=== PATIENT | female | born 1975 | race Caucasian/White ===

== ENCOUNTER 2017-08-04 08:05 | Inpatient (IN) | payer OTHER ==
[~2017-08-04 08:05] MED LIST: Dexamethasone 4 MG/ML SDV ONE; Lactated Ringers 1,000 ML IV SCH; Lactated Ringers 1,000 ML ONE; Lidocaine 1% 4 ML ONE; Lidocaine 1%/Sod Bicarbonate in NS 8.4% 1 ML Syringe PRN; Midazolam 1 MG/ML 2 ML SDV ONE; Ondansetron 4 MG/2 ML SDV ONE; Phenylephrine 1% 10 MG/ML SDV ONE; Propofol 200 MG/20 ML SDV ONE; Rocuronium 50 MG/5 ML Vial ONE; Sodium Chloride 0.9% 10 ML Syringe FLUSH PRN; ceFAZolin 1 GM Vial ONE; fentaNYL 250 MCG/5 ML SDV ONE
[2017-08-04] MEDS ORDERED: Bupivacaine 0.5% 30 ML SDV ONE (08:52)
[2017-08-04] MEDS ORDERED: Sodium Chloride 0.9% 50 ML SDV ONE (08:52)
[2017-08-04] MEDS ORDERED: Lidocaine 1% with EPINEPHrine 1:100,000 20 ML MDV ONE (08:52)
--- NOTE | 2017-08-04 09:22 | PCM.PREANE ---
Preanesthetic Assessment - Anesthesia/Transfusion/Family Hx Anesthesia History: Prior Anesthesia Reaction Type of Anesthesia Reaction: Excessive Nausea/Vomiting Family History of Anesthesia Reaction: No Transfusion History: No Prior Transfusion(s) Intubation History: Unknown - Review of Systems General: No Symptoms Pulmonary: No Symptoms Cardiovascular: No Symptoms Gastrointestinal: No Symptoms Neurological: Headache Other: Reports: None - Physical Assessment NPO Status Date: 08/03/17 NPO Status Time: 19:30 O2 Sat by Pulse Oximetry: 97 Respiratory Rate: 16 Vital Signs: Last Vital Signs Temp 36.4 C 08/04/17 08:10 Pulse 71 08/04/17 08:10 Resp 16 08/04/17 08:10 BP 144/87 H 08/04/17 08:10 Pulse Ox 97 08/04/17 08:10 Height: 1.65 m Weight: 123.377 kg ASA Class: 2 Mental Status: Alert & Oriented x3 Airway Class: Mallampati = 2 Dentition: Reports: Normal Dentition Thyro-Mental Finger Breadths: 2 Mouth Opening Finger Breadths: 3 ROM/Head Extension: Full Lungs: Clear to Auscultation, Normal Respiratory Effort Cardiovascular: Regular Rate, Regular Rhythm - Lab Values: Laboratory Last Values WBC 7.37 K/mm3 (3.98-10.04) 08/04/17 08:30 RBC 4.06 M/mm3 (3.98-5.22) 08/04/17 08:30 Hgb 12.4 gm/L (11.2-15.7) 08/04/17 08:30 Hct 36.8 % (34.1-44.9) 08/04/17 08:30 MCV 90.6 fl (79.4-94.8) 08/04/17 08:30 MCH 30.5 pg (25.6-32.2) 08/04/17 08:30 MCHC 33.7 g/dl (32.2-35.5) 08/04/17 08:30 RDW Std Deviation 43.0 fL (36.4-46.3) 08/04/17 08:30 Plt Count 281 K/mm3 (182-369) 08/04/17 08:30 MPV 8.7 fl (9.4-12.3) L 08/04/17 08:30 Neut % (Auto) 63.9 % (34.0-71.1) 08/04/17 08:30 Lymph % (Auto) 27.4 % (19.3-51.7) 08/04/17 08:30 [place] % (Auto) 4.9 % (4.7-12.5) 08/04/17 08:30 Eos % (Auto) 3.0 (0.7-5.8) 08/04/17 08:30 Baso % (Auto) 0.5 % (0.1-1.2) 08/04/17 08:30 Neut # (Auto) 4.71 K/mm3 (1.56-6.13) 08/04/17 08:30 Lymph # (Auto) 2.02 K/mm3 (1.18-3.74) 08/04/17 08:30 [place] # (Auto) 0.36 K/mm3 (0.24-0.36) 08/04/17 08:30 Eos # (Auto) 0.22 K/mm3 (0.04-0.36) 08/04/17 08:30 Baso # (Auto) 0.04 K/mm3 (0.01-0.08) 08/04/17 08:30 - Allergies Allergies/Adverse Reactions: Allergies Allergy/AdvReac Type Severity Reaction Status Date / Time No Known Allergies Allergy Verified 08/03/17 14:04 - Acknowledgements Anesthesia Type Planned: General Anesthesia Pt an Appropriate Candidate for the Planned Anesthesia: Yes Alternatives and Risks of Anesthesia Discussed w Pt/Guardian: Yes Pt/Guardian Understands and Agrees with Anesthesia Plan: Yes PreAnesthesia Questionnaire Cardiovascular History: Reports: Hypertension Respiratory History: Reports: None Gastrointestinal History: Reports: None Genitourinary History: Reports: None 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: , 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 (See Below) Other OB/BYN History: menorrhagia, uterine leiomyoma Musculoskeletal History: Reports: None Neurological History: Reports: None Psychiatric History: Reports: None Endocrine/Metabolic History: Reports: Hypothyroidism Hematologic History: Reports: None Immunologic History: Reports: None Oncologic (Cancer) History: Reports: None Dermatologic History: Reports: None - Past Surgical History Head Surgeries/Procedures: Reports: None HEENT Surgical History: Reports: Tonsillectomy Cardiovascular Surgical History: Reports: None Respiratory Surgical History: Reports: None GI Surgical History: Reports: Cholecystectomy Female Surgical History: Reports: Section, Tubal Ligation Male Surgical History: Reports: None Endocrine Surgical History: Reports: None Neurological Surgical History: Reports: None Musculoskeletal Surgical History: Reports: None Oncologic Surgical History: Reports: None Dermatological Surgical History: Reports: None - SUBSTANCE USE Smoking Status *Q: Current Every Day Smoker Recreational Drug Use History: No - HOME MEDS Home Medications: Home Meds Hydrochlorothiazide [Hydrochlorothiazide] 12.5 mg PO DAILY 08/03/17 [History] Levothyroxine 112 mcg PO DAILY 08/03/17 [History] Lisinopril [Lisinopril] 40 mg PO DAILY 08/03/17 [History] - CURRENT (IN HOUSE) MEDS Current Meds: Current Medications Lactated Ringer's (Ringers, Lactated) 1,000 mls @ 125 mls/hr IV ASDIRECTED EARNESTINE Stop: 08/04/17 23:00 Last Admin: 08/04/17 08:30 Dose: 125 mls/hr Lidocaine/Sodium Bicarbonate (Buffered Lidocaine 1% In Ns 8.4%) 0.25 ml .XX ONETIME PRN PRN Reason: Prior to IV Start Stop: 08/04/17 18:00 Last Admin: 08/04/17 08:29 Dose: 0.25 ml Sodium Chloride (Saline Flush) 10 ml FLUSH ASDIRECTED PRN PRN Reason: Keep Vein Open Stop: 08/04/17 18:00 Discontinued Medications Bupivacaine HCl (Marcaine 0.5%) Confirm Administered Dose 30 ml .ROUTE .STK-MED ONE Stop: 08/04/17 08:53 Cefazolin Sodium (Ancef) Confirm Administered Dose 2 gm .ROUTE .STK-MED ONE Stop: 08/04/17 07:17 Dexamethasone (Dexamethasone) Confirm Administered Dose 8 mg .ROUTE .STK-MED ONE Stop: 08/04/17 07:17 Fentanyl (Sublimaze) Confirm Administered Dose 250 mcg .ROUTE .STK-MED ONE Stop: 08/04/17 07:17 Lactated Ringer's (Ringers, Lactated) Confirm Administered Dose 1,000 mls @ as directed .ROUTE .STK-MED ONE Stop: 08/04/17 07:17 Lidocaine HCl (Xylocaine-Mpf 1%) Confirm Administered Dose 4 mls @ as directed .ROUTE .STK-MED ONE Stop: 08/04/17 07:18 Lidocaine/Epinephrine (Xylocaine 1% With Epinephrine 1:100,000) Confirm Administered Dose 20 ml .ROUTE .STK-MED ONE Stop: 08/04/17 08:53 Midazolam HCl (Versed 1 Mg/Ml) Confirm Administered Dose 2 mg .ROUTE .STK-MED ONE Stop: 08/04/17 07:17 Ondansetron HCl (Zofran) Confirm Administered Dose 4 mg .ROUTE .STK-MED ONE Stop: 08/04/17 07:17 Ondansetron HCl (Zofran) Confirm Administered Dose 4 mg .ROUTE .STK-MED ONE Stop: 08/04/17 07:18 Phenylephrine HCl (Lucas-Synephrine) Confirm Administered Dose 10 mg .ROUTE .STK- MED ONE Stop: 08/04/17 07:22 Propofol (Diprivan 20 Ml) Confirm Administered Dose 400 mg .ROUTE .STK-MED ONE Stop: 08/04/17 07:17 Rocuronium [place] (Zemuron) Confirm Administered Dose 50 mg .ROUTE .STK-MED ONE Stop: 08/04/17 07:17 Sodium Chloride (Normal Saline) Confirm Administered Dose 50 ml .ROUTE .STK-MED ONE Stop: 08/04/17 08:53
[2017-08-04] MEDS ORDERED: Scopolamine 1.5 MG Transdermal Patch TRDERM ONE (09:27)
[2017-08-04] MEDS ORDERED: HYDROmorphone 1 MG/ML Syringe ONE (11:42)
[2017-08-04] MEDS ORDERED: Propofol 200 MG/20 ML SDV ONE (11:58)
[2017-08-04] MEDS ORDERED: Rocuronium 50 MG/5 ML Vial ONE (12:12)
[2017-08-04] MEDS ORDERED: Succinylcholine 200 MG/10 ML MDV ONE (12:13)
[2017-08-04] MEDS ORDERED: diphenhydrAMINE 50 MG/ML SDV ONE (12:13)
[2017-08-04] MEDS ORDERED: HYDROmorphone 0.5 MG/0.5 ML Syringe IVPUSH PRN (12:14)
[2017-08-04] MEDS ORDERED: fentaNYL 250 MCG/5 ML SDV ONE (13:13)
[2017-08-04] MEDS ORDERED: Neostigmine Methylsulfate 10 MG/10 ML MDV ONE (13:38)
[2017-08-04] MEDS ORDERED: Ketorolac 30 MG/ML SDV ONE (14:13)
[2017-08-04] MEDS ORDERED: Haloperidol Lactate 5 MG/ML SDV IVPUSH ONE (14:15)
--- NOTE | 2017-08-04 14:33 | PCM.POSTAN ---
POST ANESTHESIA ASSESSMENT - MENTAL STATUS Mental Status: Alert, Oriented - VITAL SIGNS Pulse Rate: 93 SaO2: 98 Resp Rate: 14 Blood Pressure: 150/84 Temperature: 37.3 C - RESPIRATORY Respiratory Status: Respiratory Rate WNL, Airway Patent, O2 Saturation Stable, Supplemental Oxygen - CARDIOVASCULAR CV Status: Pulse Rate WNL, Blood Pressure Stable - GASTROINTESTINAL GI Status: No Symptoms - PAIN Pain Score: 0 - POST OP HYDRATION Hydration Status: Adequate & Stable
--- NOTE | 2017-08-04 14:34 | PCM.OPNOTE ---
- General Post-Op/Procedure Note Date of Surgery/Procedure: 08/04/17 Operative Procedure(s): diagnostic laparoscopy, total abdominal hysterectomy Findings: fibroid uterus, adhesions on right pelvis, filsche clips on tubes, adhesions of bladder flap to uterus Pre Op Diagnosis: menorrhagia, pelvic pain/pressure, dysmenorreha Post-Op Diagnosis: Same Anesthesia Technique: General ET Tube Primary Surgeon: Gail Yu Anesthesia Provider: Jackie Munson Manager Cosmetic: Hilda Waters Pathology: uterus, tubes, ovaries and cervix Fluid Replacement, Intraop: 3,500 Output, Urine Amount: 200 EBL in mLs: 300 Complications: None Condition: Good Free Text/Narrative:: After administration of general anesthesia, the patient was placed in the dorsal lithotomy position, and prepped and draped in the usual sterile fashion. Catheter placed in bladder. Sponge stick placed in the vagina. This area was then draped off the remainder of the operative field. A 5-mm incision was made umbilically after injecting 0.25% Marcaine, 2 mL. A Veress needle was inserted to confirm an opening pressure of 6 mmHg. Approximately 4 liters of CO2 gas was insufflated into the abdominal cavity. The Veress needle was removed, and a 5-mm optiport placed under direct visualization. Position was confirmed using a laparoscope. A second port was placed under direct visualization in left lateral location. This was done under direct visualization. The pelvic cavity was examined with the findings as noted above. Due to degree that bladder was scarred up on uterus, size of uterus and depth of pelvis decision made to open. Patient had been consented for high probability of open procedure. A pfannansteil incision was made into the abdomen through her prior incisions down through the subcutaneous tissue, muscular fascia and peritoneum. Once inside the abdominal cavity, an sangeetha retractor was placed to expose the pelvic cavity with 1 lap sponges. The uterus was then identified and grasped on the fundus with a single-toothed tenaculum with upward traction. The round ligaments on either side were identified and individually dissected and divided with bovie cautery. This allowed us to then create a bladder flap by both blunt and sharp dissection. Bladder flap had significant scarring but was eventually developed with great care. Tubes and filsche clips removed next with enseal device by transecting mesosalpinyx and passed off. The fallopian tube stup and ovarian ligament were isolated through the broad ligament from the uterine body and ligated with enseal and divided as well. We then skeletonized the uterine vessels on either side and carefully dissected the bladder flap anteriorly. Posteriorly, the peritoneum was dissected down toward the uterosacral ligaments. The uterus was amputated from the cervical stup to allow better visualization. Ricardo clamps were then placed at each isthmic portion of the cervical body junction where the uterine arteries adjoined the uterus. These were clamped, ligated and divided using #0 Vicryl suture and with enseal on contralateral side. The remainder of the uterus was then removed by the clamp- cut-ligation technique using #0 Vicryl on all major pedicles. With removal of the uterus, the vaginal cuff was closed in the usual manner with locking suture of 0 vicryl. Hemostasis was then inspected and secured throughout the entire area. Floseal placed after reinspecting all pedicles. The ovaries were left in situ and suspended to the sidewalls. The lap sponges were then removed and the self-retaining retractor was removed. The patient tolerated the operation nicely. There were no complications associated with this surgical procedure to this point. The sponge count was correct times 2 at this time. The Talbert catheter was inspected and clear urine was noted. Having removed all instruments and packs, we then began closure of the abdomen. The fascia was closed with 1 PDS in a running continuous manner and the subcutaneous tissue was also closed with 0 Vicryl in a running continuous manner. Hemostasis was secured throughout the entire layers. The incision was then closed as noted in the above operative findings. The patient tolerated the operation nicely and was then taken to the Recovery Room in good condition.
[2017-08-04] MEDS: fentaNYL 100 MCG/2 ML SDV IVPUSH PRN ×2 (14:42→15:17)
[2017-08-04] MEDS ORDERED: Ibuprofen 400 MG Tab PO PRN (16:31)
[2017-08-04] MEDS: Acetaminophen/oxyCODONE 325-5 MG Tab PO PRN ×3 (16:40→23:44)
[2017-08-05] MEDS ORDERED: Ketorolac 15 MG/ML SDV IVPUSH PRN
[2017-08-05] MEDS: Acetaminophen/oxyCODONE 325-5 MG Tab PO PRN (05:46)
[2017-08-05] MEDS: Acetaminophen/HYDROcodone 325-5 MG Tab PO PRN ×2 (09:42→15:07)
[2017-08-05 11:55] VITALS: BP 115/57
--- NOTE | 2017-08-05 12:44 | PCM48HPAN ---
Post Anesthesia Note - EVALUATION WITHIN 48HRS OF ANESTHETIC Vital Signs in Normal Range: Yes Patient Participated in Evaluation: Yes Respiratory Function Stable: Yes Airway Patent: Yes Cardiovascular Function Stable: Yes Hydration Status Stable: Yes Pain Control Satisfactory: Yes Nausea and Vomiting Control Satisfactory: Yes Mental Status Recovered: Yes - COMMENTS/OBSERVATIONS Free Text/Narrative:: Patient doing well, resting in bed. Is complaining of pain but states it is tolerable. Looking forward to being discharged soon. Denied any N/V.
[2017-08-06] MEDS ORDERED: Levothyroxine 112 MCG Tab PO SCH (06:00)
[2017-08-06] MEDS ORDERED: Hydrochlorothiazide 12.5 MG Cap PO SCH (09:00)
[2017-08-06] MEDS ORDERED: Lisinopril 20 MG Tab PO SCH (09:00)
--- NOTE | 2017-08-20 00:20 | PCM.DCSUM1 ---
Discharge Summary - Hospital Course Brief History: Admitted for LAVH vs [facility]AR. Doing great. Wishes discharge today ( POD1). Ambulating, voiding, tolerating pos. - Discharge Data Discharge Date: 08/05/17 Discharge Disposition: Home, Self-Care 01 Condition: Good - Patient Summary/Data Operative Procedure(s) Performed: diagnostic laparoscopy, total abdominal hysterectomy Complications: none - Patient Instructions Diet: Usual Diet as Tolerated Activity: No Strenuous Activities Activity, Other: pelvic rest Driving: Do Not Drive Showering/Bathing: May Shower Wound/Incision Care: Keep Operative Site/Wound Site Clean and Dry Notify Provider of: Fever, Increased Pain, Swelling and Redness, Drainage, Nausea and/or Vomiting - Discharge Plan Home Medications: Home Meds Hydrochlorothiazide [Hydrochlorothiazide] 12.5 mg PO DAILY 08/03/17 [History] Levothyroxine 112 mcg PO DAILY 08/03/17 [History] Lisinopril [Lisinopril] 40 mg PO DAILY 08/03/17 [History] Dicyclomine HCl [Bentyl] 10 mg PO QID PRN #20 capsule 08/14/17 [Rx] Patient Handouts: Smoking Cessation, Tips for Success, [id number]-Gyna, Smoking Hazards, Abdominal Hysterectomy, [id number] Referrals: Gail Yu MD [Physician] - (Dr. Yu's Nurse will call you with your follow-up date and time. ) - Discharge Summary/Plan Comment DC Time >30 min.: No - Patient Data Vitals - Most Recent: Last Vital Signs Temp 36.6 C 08/05/17 11:42 Pulse 70 08/05/17 11:42 Resp 18 08/05/17 11:42 BP 115/57 L 08/05/17 11:42 Pulse Ox 96 08/05/17 12:32 Weight - Most Recent: 127.868 kg Med Orders - Current: Current Medications Discontinued Medications Hydrocodone Bitart/Acetaminophen ([place] 325-5 Mg) 2 tab PO Q6H PRN PRN Reason: Pain Last Admin: 08/05/17 15:07 Dose: 1 tab Bupivacaine HCl (Marcaine 0.5%) Confirm Administered Dose 30 ml .ROUTE .STK-MED ONE Stop: 08/04/17 08:53 Last Admin: 08/04/17 12:10 Dose: 22 ml Cefazolin Sodium (Ancef) Confirm Administered Dose 2 gm .ROUTE .STK-MED ONE Stop: 08/04/17 07:17 Dexamethasone (Dexamethasone) Confirm Administered Dose 8 mg .ROUTE .STK-MED ONE Stop: 08/04/17 07:17 Diphenhydramine HCl (Benadryl) Confirm Administered Dose 50 mg .ROUTE .STK-MED ONE Stop: 08/04/17 12:14 Fentanyl (Sublimaze) Confirm Administered Dose 250 mcg .ROUTE .STK-MED ONE Stop: 08/04/17 07:17 Fentanyl (Sublimaze) 50 mcg IVPUSH Q5M PRN PRN Reason: Pain Stop: 08/04/17 18:00 Last Admin: 08/04/17 15:17 Dose: 50 mcg Fentanyl (Sublimaze) Confirm Administered Dose 250 mcg .ROUTE .STK-MED ONE Stop: 08/04/17 13:14 Glycopyrrolate () Confirm Administered Dose 1 mg .ROUTE .STK-MED ONE Stop: 08/04/17 13:39 Haloperidol Lactate (Haldol) 1 mg IVPUSH ONETIME ONE Stop: 08/04/17 14:16 Hydrochlorothiazide (Hydrochlorothiazide) 12.5 mg PO DAILY [facility] Hydromorphone HCl (Dilaudid) Confirm Administered Dose 2 mg .ROUTE .STK-MED ONE Stop: 08/04/17 11:43 Hydromorphone HCl (Dilaudid) 0.5 mg IVPUSH Q15M PRN PRN Reason: severe pain Stop: 08/04/17 18:00 Last Admin: 08/04/17 15:00 Dose: 0.5 mg Lactated Ringer's (Ringers, Lactated) 1,000 mls @ 125 mls/hr IV ASDIRECTED EARNESTINE Stop: 08/04/17 23:00 Last Admin: 08/04/17 08:30 Dose: 125 mls/hr Lactated Ringer's (Ringers, Lactated) Confirm Administered Dose 1,000 mls @ as directed .ROUTE .STK-MED ONE Stop: 08/04/17 07:17 Lidocaine HCl (Xylocaine-Mpf 1%) Confirm Administered Dose 4 mls @ as directed .ROUTE .STK-MED ONE Stop: 08/04/17 07:18 Ibuprofen (Motrin) 600 mg PO Q6H PRN PRN Reason: Pain (mild 1-3) Ketorolac Tromethamine (Toradol) Confirm Administered Dose 30 mg .ROUTE .STK- MED ONE Stop: 08/04/17 14:14 Ketorolac Tromethamine (Toradol) 30 mg IVPUSH Q8H PRN PRN Reason: Pain (moderate 4-6) Stop: 08/09/17 00:01 Levothyroxine Sodium (Levothyroxine) 112 mcg PO ACBREAKFAST [facility] Lidocaine/Epinephrine (Xylocaine 1% With Epinephrine 1:100,000) Confirm Administered Dose 20 ml .ROUTE .STK-MED ONE Stop: 08/04/17 08:53 Lidocaine/Sodium Bicarbonate (Buffered Lidocaine 1% In Ns 8.4%) 0.25 ml .XX ONETIME PRN PRN Reason: Prior to IV Start Stop: 08/04/17 18:00 Last Admin: 08/04/17 08:29 Dose: 0.25 ml Lisinopril (Prinivil) 40 mg PO DAILY [facility] Midazolam HCl (Versed 1 Mg/Ml) Confirm Administered Dose 2 mg .ROUTE .STK-MED ONE Stop: 08/04/17 07:17 Neostigmine Methylsulfate (Neostigmine Methylsulfate) Confirm Administered Dose 10 mg .ROUTE .STK-MED ONE Stop: 08/04/17 13:39 Ondansetron HCl (Zofran) Confirm Administered Dose 4 mg .ROUTE .STK-MED ONE Stop: 08/04/17 07:17 Ondansetron HCl (Zofran) Confirm Administered Dose 4 mg .ROUTE .STK-MED ONE Stop: 08/04/17 07:18 Oxycodone/Acetaminophen (Percocet 325-5 Mg) 2 tab PO Q6H PRN PRN Reason: Pain (moderate 4-6) Last Admin: 08/05/17 05:46 Dose: 1 tab Phenylephrine HCl (Lucas-Synephrine) Confirm Administered Dose 10 mg .ROUTE .STK- MED ONE Stop: 08/04/17 07:22 Propofol (Diprivan 20 Ml) Confirm Administered Dose 400 mg .ROUTE .STK-MED ONE Stop: 08/04/17 07:17 Propofol (Diprivan 20 Ml) Confirm Administered Dose 400 mg .ROUTE .STK-MED ONE Stop: 08/04/17 11:59 Rocuronium [place] (Zemuron) Confirm Administered Dose 50 mg .ROUTE .STK-MED ONE Stop: 08/04/17 07:17 Rocuronium [place] (Zemuron) Confirm Administered Dose 50 mg .ROUTE .STK-MED ONE Stop: 08/04/17 12:13 Scopolamine (Transderm-Scop) 1.5 mg TRDERM ONETIME ONE Stop: 08/04/17 09:28 Last Admin: 08/04/17 09:32 Dose: 1.5 mg Sodium Chloride (Saline Flush) 10 ml FLUSH ASDIRECTED PRN PRN Reason: Keep Vein Open Stop: 08/04/17 18:00 Sodium Chloride (Normal Saline) Confirm Administered Dose 50 ml .ROUTE .STK-MED ONE Stop: 08/04/17 08:53 Succinylcholine Chloride (Quelicin) Confirm Administered Dose 200 mg .ROUTE .STK -MED ONE Stop: 08/04/17 12:14 *Q Meaningful Use (DIS) - VTE *Q VTE Criteria *Q: - Stroke *Q Stroke Criteria *Q: - AMI *Q AMI Criteria *Q:
== END 2017-08-05 15:45 | disposition home or self-care (01) | DRG 743 ==
LOC: JD.SDS 08:05 → JD.MS 14:21
PROVIDERS: ADMIT Obstetrics & Gynecology; ATTEND Obstetrics & Gynecology
PROC: 0UT90ZZ Resection of Uterus, Open Approach (ICD-10-PCS; principal; 2017-08-04)
PROC: 0UTC0ZZ Resection of Cervix, Open Approach (ICD-10-PCS; 2017-08-04)
PROC: 0UT20ZZ Resection of Bilateral Ovaries, Open Approach (ICD-10-PCS; 2017-08-04)
PROC: 0UT70ZZ Resection of Bilateral Fallopian Tubes, Open Approach (ICD-10-PCS; 2017-08-04)
DX: D25.9 Leiomyoma of uterus, unspecified (principal); N92.0 Excessive and frequent menstruation with regular cycle; N94.6 Dysmenorrhea, unspecified; R10.2 Pelvic and perineal pain; F17.210 Nicotine dependence, cigarettes, uncomplicated; I10 Essential (primary) hypertension; E03.9 Hypothyroidism, unspecified; Z79.899 Other long term (current) drug therapy
CPT/HCPCS: 00840; 36415; 85025; 86850; 86900; 86901; 94760; A9270-GY; J0330; J0690; J1100; J1170; J1200; J1885; J2250; J2370; J2405; J2704; J2710; J3010; J7120

== ENCOUNTER 2017-08-14 13:36 | Emergency (ER) | payer OTHER ==
[2017-08-14] MEDS ORDERED: Ketorolac 30 MG/ML SDV IVPUSH ONE (14:38)
[2017-08-14] MEDS ORDERED: Sodium Chloride 0.9% 10 ML Syringe FLUSH PRN (14:38)
--- NOTE | 2017-08-14 14:38 | EDM.PDOC ---
ED HPI GENERAL MEDICAL PROBLEM - General Chief Complaint: Back Pain or Injury Stated Complaint: Pain Time Seen by Provider: 08/14/17 14:25 Source of Information: Reports: Patient, RN Notes Reviewed History Limitations: Reports: No Limitations - History of Present Illness INITIAL COMMENTS - FREE TEXT/NARRATIVE: 42 year old female presents to the ED with complaints of generalized pain, weakness and back pain. She says the symptoms started yesterday. She says her muscles feel tight and she feels fatigued. The pain is most severe on her right flank and into her right shoulder. She had a hystorectomy on 08/04/[address] Sawant. She was doing well until yesterday. She was on hydrocodone for pain. She had stopped the hydrocodone but took a dose today due to the pain. She is taking a stool softener when she takes a pain pill. She has not had a bowel movement in 3 days. She denies nausea or vomiting. SHe denies fever, chills or sweats. She denies shortness of breath, chest pain, cough, or pleuritic type chest pain. She has no pain, swelling or erythema to her calves. She reports some anterior knee pain bilaterally. 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 Bilateral Shoulder Pain Score (Numeric/FACES): 10 - Related Data Allergies Allergy/AdvReac Type Severity Reaction Status Date / Time No Known Allergies Allergy Verified 08/14/17 14:24 Home Meds: Home Meds Hydrochlorothiazide [Hydrochlorothiazide] 12.5 mg PO DAILY 08/03/17 [History] Levothyroxine 112 mcg PO DAILY 08/03/17 [History] Lisinopril [Lisinopril] 40 mg PO DAILY 08/03/17 [History] Dicyclomine HCl [Bentyl] 10 mg PO QID PRN #20 capsule 08/14/17 [Rx] Past Medical History Cardiovascular History: Reports: Hypertension Respiratory History: Reports: None Gastrointestinal History: Reports: None Genitourinary History: Reports: None 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, , Other (See Below) Other OB/BYN History: menorrhagia, uterine leiomyoma Musculoskeletal History: Reports: None Neurological History: Reports: None Psychiatric History: Reports: None Endocrine/Metabolic History: Reports: Hypothyroidism Hematologic History: Reports: None Immunologic History: Reports: None Oncologic (Cancer) History: Reports: None Dermatologic History: Reports: None - Infectious Disease History Infectious Disease History: Reports: Chicken Pox, Measles - Past Surgical History Head Surgeries/Procedures: Reports: None HEENT Surgical History: Reports: Tonsillectomy Cardiovascular Surgical History: Reports: None Respiratory Surgical History: Reports: None GI Surgical History: Reports: Cholecystectomy Female Surgical History: Reports: Section, Tubal Ligation Endocrine Surgical History: Reports: None Neurological Surgical History: Reports: None Musculoskeletal Surgical History: Reports: None Oncologic Surgical History: Reports: None Dermatological Surgical History: Reports: None Social & Family History - Family History Family Medical History: Noncontributory - Tobacco Use Smoking Status *Q: Current Every Day Smoker Years of Tobacco use: 10 Packs/Tins Daily: 0 - Caffeine Use Caffeine Use: Reports: Coffee, Soda - Recreational Drug Use Recreational Drug Use: No Drug Use in Last 12 Months: No ED ROS GENERAL - Review of Systems Review Of Systems: See Below Constitutional: Reports: Weakness, Fatigue. Denies: Fever, Chills, Diaphoresis Respiratory: Reports: No Symptoms. Denies: Shortness of Breath, Cough Cardiovascular: Reports: No Symptoms. Denies: Chest Pain, Dyspnea on Exertion, Edema, Lightheadedness GI/Abdominal: Reports: Abdominal Pain, Constipation. Denies: Diarrhea, Nausea, Vomiting : Reports: Flank Pain. Denies: Dysuria, Frequency ED EXAM, GENERAL - Physical Exam Exam: See Below Exam Limited By: No Limitations General Appearance: Alert, Mild Distress, Obese Respiratory/Chest: No Respiratory Distress, Lungs Clear, Normal Breath Sounds, No Accessory Muscle Use Cardiovascular: Normal Peripheral Pulses, Regular Rate, Rhythm, No Edema, No Murmur GI/Abdominal: Normal Bowel Sounds, Soft, Non-Tender Back Exam: Normal Inspection, Full Range of Motion. No: CVA Tenderness (L), CVA Tenderness (R) Extremities: Normal Inspection, Normal Range of Motion, Other (complaitns of bilateral knee pain. No joint effusions, erythema or deformity. ). No: Joint Swelling, Socorro's Sign, Increased Warmth, Redness Neurological: Alert, Oriented, Normal Cognition, No Motor/Sensory Deficits Skin Exam: Warm, Dry, Intact Course - Vital Signs Last Recorded V/S: Last Vital Signs Temp 97.8 F 08/14/17 14:22 Pulse 77 08/14/17 15:14 Resp 18 08/14/17 14:22 BP 99/57 L 08/14/17 16:04 Pulse Ox 100 08/14/17 14:22 - Orders/Labs/Meds Orders: Active Orders 24 hr Category Date Time Status Cardiac Monitoring [RC] . DIRECTED Care 08/14/17 14:38 Active Peripheral IV Care [RC] . DIRECTED Care 08/14/17 14:39 Active Abdomen 2V AP Flat Upright [CR] Stat Exams 08/14/17 14:38 Ordered Sodium Chloride 0.9% [Saline Flush] Med 08/14/17 14:38 Active 10 ml FLUSH ASDIRECTED PRN Peripheral IV Insertion Adult [OM.PC] Stat Oth 08/14/17 14:38 Ordered Medication Orders Sodium Chloride (Saline Flush) 10 ml FLUSH ASDIRECTED PRN PRN Reason: Keep Vein Open Last Admin: 08/14/17 15:03 Dose: 10 ml Labs: Laboratory Tests 08/14/17 08/14/17 08/14/17 Range/Units 14:50 15:05 15:05 WBC 16.87 H (3.98-10.04) K/mm3 RBC 3.57 L (3.98-5.22) M/mm3 Hgb 10.8 L (11.2-15.7) gm/L Hct 32.7 L (34.1-44.9) % MCV 91.6 (79.4-94.8) fl MCH 30.3 (25.6-32.2) pg MCHC 33.0 (32.2-35.5) g/dl RDW Std Deviation 42.8 (36.4-46.3) fL Plt Count 307 (182-369) K/mm3 MPV 8.0 L (9.4-12.3) fl Neut % (Auto) 72.2 H (34.0-71.1) % Lymph % (Auto) 15.5 L (19.3-51.7) % [place] % (Auto) 5.2 (4.7-12.5) % Eos % (Auto) 6.2 H (0.7-5.8) Baso % (Auto) 0.2 (0.1-1.2) % Neut # (Auto) 12.18 H (1.56-6.13) K/mm3 Lymph # (Auto) 2.62 (1.18-3.74) K/mm3 [place] # (Auto) 0.87 H (0.24-0.36) K/mm3 Eos # (Auto) 1.05 H (0.04-0.36) K/mm3 Baso # (Auto) 0.04 (0.01-0.08) K/mm3 Manual Slide Review Abnormal smear Sodium 136 (136-145) mEq/L Potassium 3.8 (3.5-5.1) mEq/L Chloride 100 (98-107) mEq/L Carbon Dioxide 25 (21-32) mEq/L Anion Gap 14.8 (5-15) BUN 14 (7-18) mg/dL Creatinine 1.2 H (0.55-1.02) mg/dL Est Cr Clr Drug Dosing 56.08 mL/min Estimated GFR (MDRD) 50 (>60) mL/min BUN/Creatinine Ratio 11.7 L (14-18) Glucose 113 H (74-106) mg/dL Calcium 8.9 (8.5-10.1) mg/dL Total Bilirubin 0.4 (0.2-1.0) mg/dL AST 13 L (15-37) U/L ALT 14 (14-59) U/L Alkaline Phosphatase 56 (46-116) U/L Total Protein 7.3 (6.4-8.2) g/dl Albumin 3.3 L (3.4-5.0) g/dl Globulin 4.0 gm/dL Albumin/Globulin Ratio 0.8 L (1-2) Urine Color Yellow (Yellow) Urine Appearance Clear (Clear) Urine pH 6.0 (5.0-8.0) Ur Specific [place] 1.020 (1.005-1.030) Urine Protein Negative (Negative) Urine Glucose (UA) Negative (Negative) Urine Ketones Negative (Negative) Urine Occult Blood Trace-lysed H (Negative) Urine Nitrite Negative (Negative) Urine Bilirubin Negative (Negative) Urine Urobilinogen 0.2 (0.2-1.0) Ur Leukocyte Esterase Negative (Negative) Urine RBC Not seen (0-5) /hpf Urine WBC 0-5 (0-5) /hpf Ur Epithelial Cells 10-20 H (0-5) /hpf Urine Bacteria Rare (FEW) /hpf Urine Mucus Not seen (FEW) /hpf Meds: Medications Generic Name Dose Route Start Last Admin Trade Name Frejonel PRN Reason Stop Dose Admin Sodium Chloride 10 ml 08/14/17 14:38 08/14/17 15:03 Saline Flush FLUSH 10 ml ASDIRECTED PRN Administration Keep Vein Open Discontinued Medications Generic Name Dose Route Start Last Admin Trade Name Jarvis PRN Reason Stop Dose Admin Diazepam 5 mg 08/14/17 14:38 08/14/17 15:15 Valium IV 08/14/17 14:39 5 mg ONETIME ONE Administration Sodium Chloride 1,000 mls @ 999 mls/hr 08/14/17 15:39 08/14/17 16:03 Normal Saline IV 08/14/17 16:39 Not Given ONETIME ONE Ketorolac Tromethamine 30 mg 08/14/17 14:38 08/14/17 15:04 Toradol IVPUSH 08/14/17 14:39 30 mg ONETIME ONE Administration - Re-Assessments/Exams Free Text/Narrative Re-Assessment/Exam: CBC reveals WBC of 16,000. Hemoglobin is 10.8. CMP is unremarkable except for creatinine of 1.2 and BUN of 14. UA is negative for infection. Flat and upright abdominal x-rays obtained. There is increased stool within her right colon and transverse colon. I suspect the patient's symptoms are related to constipation. I did order a liter of NS due to her kidney function but her IV infiltrated. The patient refused IV restart and agrees to drink fluids when she returns home. She will be discharged home with bowel cleanse instructions. She was thoroughly educated on return precautions. I encouraged her to avoid taking the hydrocodone as it worsens constipation. She will be prescribed Bentyl for GI spasms. Discharge instructions as documented. I also suspect the patient's generalized weakness and muscle aches may be related to her discontinuing the opioids and may represent mild opioid withdrawal. Departure - Departure Time of Disposition: 15:57 Disposition: Home, Self-Care 01 Condition: Good Clinical Impression: Constipation Qualifiers: Constipation type: drug induced constipation Qualified Code(s): K59.03 - Drug induced constipation - Discharge Information Prescriptions: Dicyclomine HCl [Bentyl] 10 mg PO QID PRN #20 capsule PRN Reason: Abdominal Pain Instructions: Constipation, Adult Referrals: Su Tolentino PA-C [Primary Care Provider] - Forms: ED Department Discharge Additional Instructions: Drink 1/2 bottle of magnesium citrate today then repeat the other half bottle tomorrow Take docusate sodium twice a day for the next 4-5 days Drink at least 80 oz of clear fluids per day Increase fiber in your diet with fruits grains and whole vegetables. Goal of 30grams of fiber per day Bentyl 10mg up to 4 times a day as needed for cramping Ibuprofen or Tylenol as needed for pain Try to avoid the Hydrocodone as this worsens constipation Return to ER with worsening symptoms, fever, vomiting, or additional concerns - My Orders Last 24 Hours: My Active Orders 08/14/17 14:38 Cardiac Monitoring [RC] . DIRECTED Abdomen 2V AP Flat Upright [CR] Stat Sodium Chloride 0.9% [Saline Flush] 10 ml FLUSH ASDIRECTED PRN Peripheral IV Insertion Adult [OM.PC] Stat 08/14/17 14:39 Peripheral IV Care [RC] . DIRECTED - Assessment/Plan Last 24 Hours: My Active Orders 08/14/17 14:38 Cardiac Monitoring [RC] . DIRECTED Abdomen 2V AP Flat Upright [CR] Stat Sodium Chloride 0.9% [Saline Flush] 10 ml FLUSH ASDIRECTED PRN Peripheral IV Insertion Adult [OM.PC] Stat 08/14/17 14:39 Peripheral IV Care [RC] . DIRECTED
[2017-08-14] MEDS ORDERED: Sodium Chloride 0.9% 1,000 ML IV ONE (15:39)
[2017-08-14 16:05] VITALS: BP 99/57
--- NOTE | 2017-08-15 20:01 | CR ---
Abdomen: Supine and upright views of the abdomen were obtained. Surgical clips are seen from prior cholecystectomy. Single surgical clip is seen within the right pelvis. Bowel gas pattern appears normal. Calcifications are seen within the pelvis which likely represent phleboliths. No free air is seen. Impression: 1. Incidental findings. Diagnostic code #2
== END 2017-08-14 16:15 | disposition home or self-care (01) ==
LOC: JD.ED 13:36
DX: K59.03 Drug induced constipation (principal); I10 Essential (primary) hypertension; E03.9 Hypothyroidism, unspecified; F17.210 Nicotine dependence, cigarettes, uncomplicated; Z79.899 Other long term (current) drug therapy
CPT/HCPCS: 36415; 74020; 80053; 81001; 85025; 96374; 96375; 99284; J1885; J3360; J7050

== ENCOUNTER 2023-01-27 13:00 | Day surgery (SDC) | payer BC ==
[~2023-01-27 13:00] MED LIST changes: -Dexamethasone 4 MG/ML SDV ONE; -Lactated Ringers 1,000 ML ONE; -Lidocaine 1% 4 ML ONE; +Lidocaine 1%/Sod Bicarbonate in NS 8.4% 1 ML Syringe IDERM PRN; -Lidocaine 1%/Sod Bicarbonate in NS 8.4% 1 ML Syringe PRN; -Midazolam 1 MG/ML 2 ML SDV ONE; -Ondansetron 4 MG/2 ML SDV ONE; -Phenylephrine 1% 10 MG/ML SDV ONE; -Propofol 200 MG/20 ML SDV ONE; -Rocuronium 50 MG/5 ML Vial ONE; +Sodium Chloride 0.9% 10 ML Syringe FLUSH SCH; -ceFAZolin 1 GM Vial ONE; -fentaNYL 250 MCG/5 ML SDV ONE
[2023-01-27] MEDS ORDERED: fentaNYL 100 MCG/2 ML SDV ONE (14:24)
[2023-01-27] MEDS ORDERED: Propofol 200 MG/20 ML SDV ONE (14:24)
[2023-01-27] MEDS ORDERED: Lidocaine 1% 6 ML ONE (14:25)
[2023-01-27 15:31] VITALS: BP 100/63
[2023-01-27 15:54] VITALS: PULSE 78
== END 2023-01-27 15:55 | disposition home or self-care (01) ==
LOC: JD.SDS 13:00
PROVIDERS: ATTEND Surgery
DX: Z12.11 Encounter for screening for malignant neoplasm of colon (principal); K62.1 Rectal polyp; K64.8 Other hemorrhoids; K63.89 Other specified diseases of intestine; I12.9 Hypertensive chronic kidney disease with stage 1 through stage 4 chronic kidney disease, or unspecified chronic kidney disease; N18.2 Chronic kidney disease, stage 2 (mild); K21.9 Gastro-esophageal reflux disease without esophagitis; E03.9 Hypothyroidism, unspecified; G47.33 Obstructive sleep apnea (adult) (pediatric); Z79.890 Hormone replacement therapy; Z79.899 Other long term (current) drug therapy; Z87.891 Personal history of nicotine dependence; Z83.71 Family history of colonic polyps
CPT/HCPCS: 45380; J2704; J3010; J7120; 00812; J3490